=== PATIENT | male | born 1975 | race Caucasian/White ===

== ENCOUNTER 2021-11-26 20:10 | Emergency (ER) | payer SELFPAY ==
[~2021-11-26] VITALS: Ht 172.7 cm; Wt 68.0 kg
[2021-11-26] MEDS ORDERED: ULTRAM50 MG PO (22:10)
[2021-11-26] MEDS ORDERED: CEPHALEXIN500 M1 PO (22:43)
== END 2021-11-26 23:07 | disposition home or self-care (01) ==
LOC: ED 20:10
DX: S62.314A Displaced fracture of base of fourth metacarpal bone, right hand, initial encounter for closed fracture (principal); S23.3XXA Sprain of ligaments of thoracic spine, initial encounter; J02.9 Acute pharyngitis, unspecified; Y04.2XXA Assault by strike against or bumped into by another person, initial encounter
CPT/HCPCS: 29125; 71101; 72080; 73130; 81001; 99284-25; A9270; J1885; J3360

== ENCOUNTER 2024-10-14 22:00 | Emergency (ER) | payer OTHER ==
[~2024-10-14] VITALS: Ht 172.7 cm; Wt 66.0 kg
[~2024-10-14 22:00] MED LIST: CEPHALEXIN500 M1 PO; ULTRAM50 MG PO
[2024-10-14] MEDS ORDERED: ONDANSETRON 4 MG TAB ODT SL ONE (23:00)
[2024-10-14] MEDS ORDERED: LIDOCAINE & ANTACID 35 ML BTL PO ONE (23:00)
[2024-10-14] MEDS ORDERED: DIPHENOXYLATE/ATROPINE 1 EA TAB PO ONE (23:00)
[2024-10-14 23:14] LABS: BASOPHILS 0.7 % (0.2-1.2); EOSINOPHILS 3.6 % (0.8-7.0); LYMPHOCYTES 12.0 % (21.8-53.1); MCH 29.8 PG (25.7-32.2); MCHC 34.2 g/dL (32.3-36.5); MCV 87.0 fL (79.0-92.2); MONOCYTES 10.9 % (5.3-12.2); NEUTROPHILS 72.7 % (34.0-67.9); RBC 4.84 M/uL (4.63-6.08)
[2024-10-14 23:30] LABS: ALT (SGPT) 22.0 U/L (14-59); AST (SGOT) 22.0 U/L (15-37); GLOMERULAR FILTRATION RATE,EST 106.0 mL/min (>60); PROTEIN, TOTAL 7.0 g/dL (6.4-8.2); UREA NITROGEN 19.0 mg/dL (7-18)
[2024-10-15] MEDS ORDERED: ONDANSETRON ODT8 MG PO (00:17)
[2024-10-15] MEDS ORDERED: LOMOTIL TABLET1 EACH PO (00:17)
[2024-10-15] MEDS ORDERED: ONDANSETRON 4 MG HOME.PACK SL ONE (00:30)
[2024-10-15 00:34] VITALS: BP 103/79
== END 2024-10-15 00:35 | disposition home or self-care (01) ==
LOC: ED 22:00
PROVIDERS: Family Medicine
DX: A08.4 Viral intestinal infection, unspecified (principal)
CPT/HCPCS: 74018; 80053; 83690; 83735; 85025; 99284; A9270